=== PATIENT | male | born 2000 | race Two or more races ===

== ENCOUNTER 2020-03-12 03:12 | Emergency (ER) | payer OTHER ==
[2020-03-12 03:38] VITALS: BP 130/64; PULSE 106; TEMP 98.1; BMI 25.9
[2020-03-12] MEDS ORDERED: IBUPROFEN 400 MG TABLET (FP) PO ONE ×2 (04:14→04:27)
[2020-03-12] MEDS ORDERED: DIPHTH,PERTUSS(ACELL),TET 0.5 ML DISP.SYRIN IM ONE ×2 (04:14→04:27)
--- NOTE | 2020-03-12 04:22 | PDOC ---
History of Present Illness - General Chief Complaint: Laceration Stated Complaint: FINGER LACERATION Past History - Medical History Allergies/Adverse Reactions: Allergies Allergy/AdvReac Type Severity Reaction Status Date / Time No Known Allergies Allergy Verified 03/12/20 04:41 - Psycho-Social/Smoking History Smoking History: Never smoked - Substance Abuse Hx (Audit-C & DAST Scrn) How often the patient has a drink containing alcohol: Never Score: In Men: 4 or > Positive; In Women: 3 or > Positive: 0 Screen Result (Pos requires Nsg. Audit-10AR): Negative In the last yr the pt used illegal drug/Rx for NonMed reason: No Score: Yes response is considered Positive: 0 Screen Result (Positive result requires Nsg. DAST-10): Negative *Physical Exam - Vital Signs Last Vital Signs Temp Pulse Resp BP Pulse Ox 98.1 F 106 H 16 130/64 97 03/12/20 03:36 03/12/20 03:36 03/12/20 03:36 03/12/20 03:36 03/12/20 03:36 Procedures - Laceration/Wound Repair Right Finger 4th digit Wound Length: to 2.5 cm Wound Explored: clean, no foreign body present Wound's Depth, Shape: superficial, linear Irrigated w/ Saline: Yes Betadine Prep: No Anesthesia: 1% Lidocaine Amount of Anesthetic (ccs): 5 Wound Debrided: minimal Wound Repaired With: Sutures Suture Size/Type: 6:0, nylon Number of Sutures: 8 Layer Closure: No Medical Decision Making - Medical Decision Making 03/12/20 04:27 19y/o M no significant medical hx, presents to the ED after cutting his right ring finger on a bottle. pt tripped and fell. He denies any other injuries. Pt denies any numbness or loss of sensation in his right hand or finger. ROS: as noted Allergies: NKDA ROS: GENERAL/CONSTITUTIONAL: No fever or chills. No weakness. HEAD, EYES, EARS, NOSE AND THROAT: No change in vision. No ear pain or discharge. No sore throat. CARDIOVASCULAR: No chest pain or shortness of breath RESPIRATORY: No cough, wheezing, or hemoptysis. GASTROINTESTINAL: No nausea, vomiting, diarrhea or constipation. GENITOURINARY: No dysuria, frequency, or change in urination. MUSCULOSKELETAL: No joint or muscle swelling or pain. No neck or back pain. SKIN: No rash NEUROLOGIC: No headache, vertigo, loss of consciousness, or change in strength/sensation. ENDOCRINE: No increased thirst. No abnormal weight change HEMATOLOGIC/LYMPHATIC: No anemia, easy bleeding, or history of blood clots. ALLERGIC/IMMUNOLOGIC: No hives or skin allergy. PE: GENERAL: Awake, alert, and fully oriented, in no acute distress HEAD: No signs of trauma, normocephalic, atraumatic EYES: PERRLA, EOMI, sclera anicteric, conjunctiva clear ENT: Auricles normal inspection, hearing grossly normal, nares patent, oropharynx clear without exudates. Moist mucosa NECK: Normal ROM, supple, no lymphadenopathy, JVD, or masses LUNGS: No distress, speaks full sentences, clear to auscultation bilaterally HEART: Regular rate and rhythm, normal S1 and S2, no murmurs, rubs or gallops, peripheral pulses normal and equal bilaterally. ABDOMEN: Soft, nontender, normoactive bowel sounds. No guarding, no rebound. No masses EXTREMITIES : 1.5cm laceration on right ring finger. no foreign bodies in wound. capillary refill 1s. patient has full range of motion in fingers. NEUROLOGICAL: Cranial nerves II through XII grossly intact. Normal speech, normal gait, no focal sensorimotor deficits SKIN: Warm, Dry, normal turgor, no rashes or lesions noted MDM DDx including but not limited to: Workup: right hand x-ray, lac repair, motrin for pain. TX: Scores - HEART score - EKG: normal sinus rhythm, HR bpm, CO ms, QRS ms, QTc ms ED course x-rays of right hand: no fracture. meds: Re-assessment: 03/12/20 06:02 03/12/20 06:12 Discharge - Discharge Information Problems reviewed: Yes Clinical Impression/Diagnosis: Finger laceration Qualifiers: Encounter type: initial encounter Finger: index finger Damage to nail status: without damage Foreign body presence: unspecified Laterality: right Qualified Code(s): S61.210A - Laceration without foreign body of right index finger without damage to nail, initial encounter Condition: Stable Disposition: HOME - Follow up/Referral - Patient Discharge Instructions Patient Printed Discharge Instructions: DI for Laceration Repair Additional Instructions: follow up with your primary care provider. COME BACK TO THE ED/PRIMARY CARE FOR REMOVAL OF YOUR SUTURES IN THE NEXT 7-10 DAYS. -keep the area dry and do not directly immerse in water. RETURN TO THE ER if any signs of infection such as redness, swelling, discharge, or worsening pain. - Post Discharge Activity
--- NOTE | 2020-03-12 04:58 | PDOC ---
Attending Attestation - Resident Resident Name: Gricelda Tong - ED Attending Attestation I have performed the following: I have examined & evaluated the patient, The case was reviewed & discussed with the resident, I agree w/resident's findings & plan, Exceptions are as noted - HPI HPI: 03/12/20 04:53 19 yo M p/w R 2nd digit laceration sustained this evening when he feel while holding a glass bottle. Reports tetanus up to date. Denies numbness or weakness in digit. Denies any other injuries or complaints. - Physicial Exam PE: 03/12/20 04:55 General: well appearing Extremities: good cap refill, ~1.5 cm laceration to distal flexor surface of R 2nd digits with small amount of oozing, flexion/extension/adduction/abduction of all digits intact, sensation intact to light touch - Medical Decision Making 03/12/20 04:56 19 yo M with finger lac, neurovascularly intact. Plan: -xr hand to eval for foreign body -irrigate wound -lac repair -d/c after lac repair with return precautions, f/u PMD for suture removal or return to ED for suture removal This clinical encounter is taking place during a federal and state health care emergency attributable to the novel Phan Virus pandemic. The [place] of the Department of Health and Human Services has declared, pursuant to the Public Health Service Act 319F-3 (42 [place]C. 247d-6d), that a covered persons activities related to medical countermeasures against COVID-19 will be immune from liability under Federal and State law. Discharge - Discharge Information Problems reviewed: Yes Clinical Impression/Diagnosis: Finger laceration Qualifiers: Encounter type: initial encounter Finger: index finger Damage to nail status: without damage Foreign body presence: unspecified Laterality: right Qualified Code(s): S61.210A - Laceration without foreign body of right index finger without damage to nail, initial encounter - Follow up/Referral - Patient Discharge Instructions - Post Discharge Activity
== END 2020-03-12 06:25 | disposition home or self-care (01) ==
LOC: JER 03:12
PROC: 0HQFXZZ Repair Right Hand Skin, External Approach (ICD-10-PCS; principal; 2020-03-12)
PROC: 3E0234Z Introduction of Serum, Toxoid and Vaccine into Muscle, Percutaneous Approach (ICD-10-PCS; 2020-03-12)
DX: S61.210A Laceration without foreign body of right index finger without damage to nail, initial encounter (principal)
CPT/HCPCS: 73130-TC-RT-FY; 90715; 99284-25